=== PATIENT | male | born 1990 | race Caucasian/White ===

== ENCOUNTER 2016-07-21 13:58 | Emergency (ER) | payer SELFPAY ==
[~2016-07-21] VITALS: Ht 175.3 cm; Wt 79.4 kg
--- NOTE | 2016-07-21 14:05 | ED Chest Pain ---
General Stated Complaint: CHEST PAIN Source: patient Exam Limitations: no limitations History of Present Illness Time seen by provider: 14:03 Initial Comments To ER with left-sided chest pain goal mild and constant since 9 a.m. this morning. He is employed as a schoolteacher and took the remainder of the afternoon off to have this evaluated. He called his primary care provider to try to be seen in the clinic but they referred him to the emergency room. No associated shortness of breath or nausea. The pain does not radiate. He denies any modifying factors. He's recently had upper respiratory infection with rhinorrhea and sore throat treated with [id number] decongestants and Motrin but no medication use in the past 2-3 days. States that he smokes only occasionally nothing regular. Mother did have a heart attack at the age of 50. Timing/Duration: constant Severity/Quality: mild Location: central Radiation: no radiation Activities at Onset: none ASA po [employer]OMASS PRODUCTION MANAGER: No NTG SL BIOMASS PRODUCTION MANAGER: No Allergies and Home Medications Allergies Coded Allergies: No Known Drug Allergies (Unverified , 07/21/16) Home Medications No Active Prescriptions or Reported Meds Review of Systems Constitutional: see HPINo chills EENTM: No Symptoms Reported Respiratory: No Symptoms ReportedDenies Cough, Denies Orthopnea, Denies Shortness of Air, Denies SOA With Exertion, Denies SOA at Rest Cardiovascular: See HPI Chest Pain Gastrointestinal: See HPI Abdominal Pain Genitourinary: No Symptoms Reported Musculoskeletal: no symptoms reported Skin: no symptoms reported Psychiatric/Neurological: No Symptoms Reported Endocrine: No Symptoms Reported Physical Exam Vital Signs Vital Sign - Last 12Hours 07/21/16 14:00 Temp 97.9 Pulse 56 Resp 14 B/P 135/82 Pulse Ox 100 O2 Delivery Room Air Capillary Refill : General Appearance: No Apparent Distress WD/WN HEENT: PERRL/EOMI TMs Normal Neck: Full Range of Motion Normal Inspection Respiratory: Chest Non Tender Lungs Clear Normal Breath Sounds No Accessory Muscle Use No Respiratory Distress Cardiovascular: Regular Rate, Rhythm Normal Peripheral Pulses Gastrointestinal: Normal Bowel Sounds Non Tender Soft Extremity: Normal Capillary Refill Normal Inspection Neurologic/Psychiatric: Alert Oriented x3 No Motor/Sensory Deficits Skin: Normal Color Warm/Dry Progress/Results/Core Measures Results/Orders Lab Results Laboratory Tests Test 07/21/16 14:10 Range/Units Basophils # (Auto) 0.0 0.0-0.1 10^3/uL Basophils (%) (Auto) 1 0-10 % D-Dimer < 0.27 0.00-0.49 UG/ML Eosinophils # (Auto) 0.2 0.0-0.3 10^3/uL Eosinophils (%) (Auto) 4 0-10 % Hematocrit 49 40-54 % Hemoglobin 16.6 13.3-17.7 G/DL Lymphocytes # (Auto) 1.6 1.0-4.0 X 10^3 Lymphocytes (%) (Auto) 31 12-44 % Mean Corpuscular Hemoglobin 30 25-34 PG Mean Corpuscular Hemoglobin Concent 34 32-36 G/DL Mean Corpuscular Volume 90 80-99 FL Mean Platelet Volume 10.5 H 7.4-10.4 FL Monocytes # (Auto) 0.8 0.0-1.0 X 10^3 Monocytes (%) (Auto) 16 H 0-12 % Neutrophils # (Auto) 2.4 1.8-7.8 X 10^3 Neutrophils (%) (Auto) 48 42-75 % Platelet Count 184 130-400 10^3/uL Red Blood Count 5.50 4.35-5.85 10^6/uL Red Cell Distribution Width 12.7 10.0-14.5 % White Blood Count 5.1 4.3-11.0 10^3/uL My Orders Orders-[facility] [employer]ER Cbc With Automated Diff (07/21/16 14:02) Comprehensive Metabolic Panel (07/21/16 14:02) Lipase (07/21/16 14:02) Chest Pa/Lat (2 View) (07/21/16 14:02) Troponin I (07/21/16 14:02) Ekg Tracing (07/21/16 14:02) Fibrin Degradation Products (07/21/16 14:05) Vital Signs/I&O Vital Sign - Last 12Hours 07/21/16 07/21/16 14:00 14:00 Temp 97.9 Pulse 56 Resp 14 B/P 135/82 Pulse Ox 100 O2 Delivery Room Air Diagnostic Imaging Diagonstic Imaging: Xray Plain Films/CT/US/NM/MRI: chest Comments NAME: [facility] REC#: [id number] PT STATUS: REG ER : 1990 PHYSICIAN: CARMEN HILL APRN ADMIT DATE: 07/21/16/ER Draft Date of Exam:07/21/16 CHEST PA/LAT (2 VIEW) INDICATION: Anterior chest pain. FINDINGS: PA and lateral view show the lungs to be well-aerated and clear. The heart is not enlarged. No hilar adenopathy. No pneumothorax or pleural effusion. Lateral view shows the sternum to be in good alignment. No evidence of rib fractures. IMPRESSION: Normal PA and lateral chest. Dictated on workstation # [id number] Dict: 07/21/16 1426 Trans: 07/21/16 1431 KB [id number] Interpreted by: VICKY ROBERTSON MD Electronically signed by: Departure Impression Impression: Primary Impression: Non-cardiac chest pain Disposition: 01 HOME, SELF-CARE Condition: Stable Departure-Patient Inst. Decision time for Depature: 14:26 Patient Instructions: Chest Pain That Is Not Caused by the Heart (DC) Add. Discharge Instructions: 1. Tylenol and Motrin for pain 2. Follow-up with your doctor next week Scripts No Active Prescriptions or Reported Meds CARMEN HILL APRN Jul 21, 2016 14:05
[2016-07-21 14:18] LABS: BASOPHILS % (AUTO) 1 % (0-10); EOSINOPHILS # (AUTO) 0.2 10^3/uL (0.0-0.3); EOSINOPHILS % (AUTO) 4 % (0-10); LYMPHOCYTES # (AUTO) 1.6 X 10^3 (1.0-4.0); LYMPHOCYTES % (AUTO) 31 % (12-44); MEAN CORPUSCULAR HEMOGLOBIN 30 PG (25-34); MEAN CORPUSCULAR HGB CONC 34 G/DL (32-36); MEAN CORPUSCULAR VOLUME 90 FL (80-99); MEAN PLATELET VOLUME 10.5 FL (7.4-10.4); MONOCYTES # (AUTO) 0.8 X 10^3 (0.0-1.0); MONOCYTES % (AUTO) 16 % (0-12); NEUTROPHILS # (AUTO) 2.4 X 10^3 (1.8-7.8); NEUTROPHILS % (AUTO) 48 % (42-75); PLATELET COUNT 184 10^3/uL (130-400); RED CELL DISTRIBUTION WIDTH 12.7 % (10.0-14.5); WHITE BLOOD COUNT 5.1 10^3/uL (4.3-11.0)
--- NOTE | 2016-07-21 14:31 | Diagnostic Imaging Report ---
INDICATION: Anterior chest pain. FINDINGS: PA and lateral view show the lungs to be well-aerated and clear. The heart is not enlarged. No hilar adenopathy. No pneumothorax or pleural effusion. Lateral view shows the sternum to be in good alignment. No evidence of rib fractures. IMPRESSION: Normal PA and lateral chest. Dictated by: Dictated on workstation # [id number]
[2016-07-21 14:37] LABS: ALANINE AMINOTRANSFERASE 23 U/L (0-55); ALBUMIN 4.8 G/DL (3.2-4.5); ANION GAP 13 MMOL/L (5-14); ASPARTATE AMINO TRANSFERASE 24 U/L (5-34); BILIRUBIN,TOTAL 0.4 MG/DL (0.1-1.0); BLOOD UREA NITROGEN 13 MG/DL (7-18); BUN/CREATININE RATIO 14; CALCIUM 9.7 MG/DL (8.5-10.1); CARBON DIOXIDE 24 MMOL/L (21-32); CHLORIDE 104 MMOL/L (98-107); CREATININE SERUM 0.93 MG/DL (0.60-1.30); GFR ESTIMATED > 60; GLUCOSE 85 MG/DL (70-105); LIPASE 21 U/L (8-78); POTASSIUM 4.3 MMOL/L (3.6-5.0); SODIUM 141 MMOL/L (135-145); TOTAL PROTEIN 7.7 G/DL (6.4-8.2)
[2016-07-21 14:44] LABS: TROPONIN I < 0.30 NG/ML (<0.30)
[2016-07-21 14:57] VITALS: BP 106/64
== END 2016-07-21 14:56 | disposition home or self-care (01) ==
LOC: ER 13:59
DX: R07.89 Other chest pain (principal)
CPT/HCPCS: 36415; 71020; 80053; 83690; 84484; 85025; 85379; 93005